=== PATIENT | female | born 1945 ===

== ENCOUNTER 2022-04-22 06:00 | Day surgery (SDC) | payer OTHER | END 2022-04-22 12:10 | disposition home or self-care (01) | LOC: AMB-ENDOS 06:00 | PROVIDERS: ATTEND Surgery | DX: D12.0 Benign neoplasm of cecum (principal); I10 Essential (primary) hypertension; E11.9 Type 2 diabetes mellitus without complications; Z79.84 Long term (current) use of oral hypoglycemic drugs ==